=== PATIENT | male | born 1935 | race Caucasian/White ===

== ENCOUNTER 2018-10-03 18:42 | Inpatient (IN) | payer OTHER ==
[~2018-10-03] VITALS: Ht 180.3 cm; Wt 81.6 kg
[2018-10-03 18:43] VITALS: BP 132/110
[2018-10-03 19:21] LABS: HEMATOCRIT 46.5 % (42.0-52.0); HEMOGLOBIN 16.1 gm/dL (14.0-18.0); MCH 30.1 pg (26.0-34.0); MCHC 34.6 g/dL (28.0-37.0); RBC 5.34 mil/uL (4.50-6.00); RDW 13.7 % (10.5-14.5); WBC 9.2 thou/uL (4.0-11.0)
[2018-10-03 19:23] LABS: ANION GAP 12 mmol/L (7-16); BUN 22 mg/dL (7-18); CALCIUM 9.1 mg/dL (8.5-10.1); CHLORIDE 104 mmol/L (98-107); CO2 24 mmol/L (21-32); CREATININE 1.6 mg/dL (0.7-1.3); GLUCOSE 167 mg/dL (74-106); POTASSIUM 4.1 mmol/L (3.5-5.1); SODIUM 140 mmol/L (136-145)
[2018-10-03 19:31] LABS: TROPONIN-I <0.06 ng/mL (<0.06)
[2018-10-03 19:34] LABS: URINE BILIRUBIN NEGATIVE (Negative); URINE BLOOD NEGATIVE (Negative); URINE CLARITY CLEAR; URINE COLOR YELLOW; URINE GLUCOSE-RANDOM* TRACE (Negative); URINE KETONES TRACE (Negative); URINE LEUKOCYTES-REFLEX NEGATIVE (Negative); URINE NITRITE-REFLEX NEGATIVE (Negative); URINE PROTEIN (DIPSTICK) NEGATIVE (Negative); URINE UROBILINOGEN 0.2 E.U./dl (0.2-1.0)
[2018-10-03 20:02] LABS: AMP/METHAMP Negative (Negative); BARBITURATES Negative (Negative); BENZODIAZEPINES Negative (Negative); COCAINE Negative (Negative); METHADONE Negative (Negative); OPIATES Negative (Negative); PCP Negative (Negative)
[2018-10-03 20:39] VITALS: BP 185/96
--- NOTE | 2018-10-04 03:40 | NUR ---
NEW ADMIT FOR ALTERED MENTAL STATUS. PATIENT AOX1 FORGETFUL AND CONFUSED. PATIENT IS [place]. PATIENT DENIED PAIN OR DISCOMFORT. PATIENT IS EASY TO REDIRECT. PATIENT AMBULATES WITH STEADY GAITS IN THE ROOM. PATIENT IS CONTINENT OF BOTH BOWEL AND BLADDER. PATIENT IN BED ASLEEP AT THIS TIME BREATHING REGULAR AND UNLABOURED.
[2018-10-04 04:17] VITALS: BP 174/91
[2018-10-04 05:58] LABS: CALCIUM 8.8 mg/dL (8.5-10.1); CREATININE 1.2 mg/dL (0.7-1.3); POTASSIUM 4.3 mmol/L (3.5-5.1)
[2018-10-04 07:32] VITALS: BP 164/73
--- NOTE | 2018-10-04 08:23 | EKG ---
[address] [address] ELECTROCARDIOGRAM REPORT Name: ROGELIO PADILLA Room #: 461-P ADM IN M.R.#: [id number] Admission: 10/03/18 Attend Phys: Ronal Plata MD Discharge: Date of : 37 Report #: [id number] THIS REPORT FOR: //name// [facility] ED Test Date: 2018-10-03 Test Time: 19:16:39 Pat Name: ROGELIO PADILLA Department: Room: 461 Gender: M [employer] Specialist: ARMAND : 1935 Requested By: Tal Del Rio Order Number: [id number] MD: Michael Urena Measurements Intervals Handley Rate: 79 P: 28 MO: 179 QRS: 9 QRSD: 92 T: 52 QT: 390 QTc: 448 Interpretive Statements Sinus rhythm No significant abnormality No previous ECG available for comparison Electronically Signed On 10-04-2018 8:23:18 CDT by Michael Urena [email or web address] <ELECTRONICALLY SIGNED> By: Michael Urena MD, [facility] 10/04/18 0823 191 15 Michael Urena MD, FACC /EPI
[2018-10-04 15:21] VITALS: BP 157/91
--- NOTE | 2018-10-04 17:21 | NUR ---
PT ADMITTED REALTED TO [facility]. PT WAS BROUGHT IN VIA POLICE OR EMS HAVING BECOME LOST AND GOING TO SAME [facility] STATION LOOKING FOR DIRECTIONS 4 TIMES. PT IS FROM [facility] AND HAD BEEN IN [place] VISITING HIS GRANDSON. HE HAD GOTTEN LOST. CM SPOKE WITH PT'S DTR JARRELL AND WITH HIS LATE SON DAVIDE BOYER'S YOHAN WILLIAMSON AND SHE INDICATED THAT HER SON PT'S GRANDSON EDUARDO PADILLA AND HIS GIRLFRIEND BETO WILL BE DRIVEN HER BY HER HUSBAN LANIE TOMORROW AT 12:00 TO PICK PT UP AND DRIVE HIM IN HIS CARE TO HIS HOME IN [facility]. CM NOTIFIED PT AND HE HAD BEEN AWARE. DR. BURROUGHS WITH PSYC CONSULTED AT PT IS CONFUSED AND FAMILY INDICATED THAT HE HAD BEEN TAKING ABOUT PEOPLE WHO WEREN'T THERE AND STATED THAT HIS LATE 'S DOLLS HAD BEEN SPEAKING WITH HIM. CM TO FOLLOW INDICATED WITH DC PLANNING.
--- NOTE | 2018-10-04 20:01 | NUR ---
THIS NURSE ASSESSED PATIENT IN ROOM ONE TO ONE FOR POSSIBLE PSYCH ADMISSION TO [facility]S. PT APPEARS COGNITIVELY DECLINING, BUT IS ALERT AND ORIENTED X3, ABLE TO RECALL REASON FOR HOSPITAL ADMISSION. DISCUSSED WITH 4W NURSE REGARDING PATIENT PLAN FOR DISCHARGE. PLAN IN PLACE IS DISCHARGE TOMORROW WITH GRANDSON. THIS NURSE FINISHED ASSESSMENT AT 1940 WITH PATIENT, DISCUSSED WITH DR. GOMEZ, AND DR GOMEZ DENIED ADMISSION TO 5S BASED UPON THIS RNS ASSESSMENT AND RECOMMENDATIONS.
--- NOTE | 2018-10-04 20:10 | NUR ---
PT A&OX3 EARLIER TODAY, THE DAY PROGRESSED HIS THOUGHT PROCESS BECOME MORE AND MORE DISCONNECTED. PATIENT HAS A GRANDSON THAT WILL COME PICK HIM UP AND TAKE HIM HOME TOMORROW. PATIENT IS AT THIS TIME IMPULSIVE, ANXIOUS AND WANTING TO LEAVE FACILITY. HE IS REDIRECTABLE. PATIENT PULLED OUT HIS IV STATING HE DID NOT WANT IT ANYMORE. HE REFUSES A GOWN AND SOCKS AND PREFERS TO KEEP HIS CLOTHING AND SHOES ON. WILL CONTINUE TO MONITOR.
--- NOTE | 2018-10-04 20:23 | NUR ---
PATIENT HAS BEEN EVALUATED FOR [facility]ITES AND WAS DECLINED ACCEPTANCE BY DR PORTILLO. PATIENT IS LEAVING AT NOON TOMORROW WITH GRANDSON.
[2018-10-04 20:37] VITALS: BP 125/71
[2018-10-05 00:08] LABS: GLYCOHEMOGLOBIN (HGB A1C) 6.2 % (4.8-5.6)
--- NOTE | 2018-10-05 05:07 | NUR ---
PATIENT ALERT AND ORIENTED TO PERSON, PLACE AND SOMETIMES TO SITUATION. TRIED TO LEAVE SEVERAL TIMES BUT HAS BEEN REDIRECTED EASILY. TAKEN TO ROOM. PATIENT UP AND ABOUT BY SELF. GRANDSON TO BE HERE TO TAKE HOME. PATIENT IS A FLIGHT RISK. DENIES PAIN. SLEPT MOST OF NGHT.
[2018-10-05 07:17] VITALS: BP 130/64
[2018-10-05 12:41] VITALS: BP 130/64
[2018-10-05 12:55] VITALS: BP 130/64
[2018-10-05 13:16] VITALS: BP 130/64
--- NOTE | 2018-10-05 13:23 | NUR ---
SECURITY BROUGHT UP ENVELOPE WITH PATIENT'S BELONGINGS 917.00 IN [employer] BILLFOLD WITH CHARGE CARDS DRIVERS LISCENSE AND INSURANCE CARDS PATIENT SIGNED AND RECIEVED PROPERTY. PT W/O Pain OR RESP DISTRESS AT DISCHARGE
--- NOTE | 2018-10-05 16:48 | NUR ---
PT WAS PICKED UP BUT HIS GRANDSON THIS AFTERNOON. SECURITY PROVIDED PT WITH HIS PERSONAL BELONGINGS AND ASSISTED PT AND FAMILY TO HIS VEHICLE. CM NOTIFIED HIS FAMILY MEMBER YOHAN AND HIS DTR JARRELL OF HIS DISHCARGE. GRANDSON EDUARDO TO STAY WITH PT AT HIS HOME FOR A FEW DAYS FOR ASSIST WITH GETTING HIM TO A PCP. NO OTHER CM INTERVENTION INDICATED CASE CLOSED.
== END 2018-10-05 13:53 | disposition home or self-care (01) | DRG 70 ==
LOC: ER 18:42 → EROBS 20:22 → 4W 20:22
PROVIDERS: Emergency Medicine; Nurse Practitioner Acute Care; ADMIT Internal Medicine
DX: G93.41 Metabolic encephalopathy (principal); N17.0 Acute kidney failure with tubular necrosis; R41.0 Disorientation, unspecified; G31.9 Degenerative disease of nervous system, unspecified; I10 Essential (primary) hypertension; F32.9 Major depressive disorder, single episode, unspecified; F02.80 Dementia in other diseases classified elsewhere, unspecified severity, without behavioral disturbance, psychotic disturbance, mood disturbance, and anxiety
CPT/HCPCS: 10040; 10045